=== PATIENT | male | born 1975 | race American Indian/Alaskan Native ===

== ENCOUNTER 2017-02-03 05:59 | Emergency (ER) | payer OTHER ==
--- NOTE | 2017-02-03 13:17 | EKG ---
[facility] [address] [place] [address] Signed Normal sinus rhythm Inferior infarct , age undetermined Abnormal ECG No previous ECGs available Confirmed by JUANI TAVARES MD ([id number]) on 02/03/2017 1:17:25 PM Electronically Signed By: JUANI TAVARES MD 02/03/17 1317 PATIENT NAME: QUE COTTO KASANDRA Electrocardiogram DATE OF : 77 PHYSICIAN: JUANI TAVARES MD REPORT #: [id number] REPORT IS CONFIDENTIAL AND NOT TO BE RELEASED WITHOUT AUTHORIZATION
== END 2017-02-03 10:30 | disposition home or self-care (01) ==
LOC: ED 05:59
DX: R07.89 Other chest pain (principal); F17.210 Nicotine dependence, cigarettes, uncomplicated; Z90.89 Acquired absence of other organs
CPT/HCPCS: 36415; 71010; 80053; 83874; 83880; 84484; 85025; 85379; 85610; 85730; 93005; 93010; 94640; 99283

== ENCOUNTER 2018-10-07 13:28 | Emergency (ER) | payer OTHER ==
[~2018-10-07] VITALS: Ht 180.3 cm; Wt 149.7 kg
== END 2018-10-07 15:02 | disposition home or self-care (01) ==
LOC: ED 13:28
DX: S83.92XA Sprain of unspecified site of left knee, initial encounter (principal); F17.200 Nicotine dependence, unspecified, uncomplicated; W18.30XA Fall on same level, unspecified, initial encounter
CPT/HCPCS: 73560; 99283-25

== ENCOUNTER 2021-06-22 18:00 | Inpatient (IN) | payer OTHER ==
[~2021-06-22] VITALS: Ht 177.8 cm; Wt 150.9 kg
--- NOTE | 2021-06-24 14:07 | EKG ---
[facility] [address] [place] [address] Signed Normal sinus rhythm Septal infarct , age undetermined Inferior infarct (cited on or before 03-FEB-2017) Abnormal ECG When compared with ECG of 03-FEB-2017 06:03, No significant change was found Confirmed by JUANI TAVARES MD ([id number]) on 06/24/2021 2:07:08 PM Electronically Signed By: JUANI TAVARES MD 06/24/21 1407 PATIENT NAME: QUE COTTO KASANDRA Electrocardiogram DATE OF : 77 PHYSICIAN: JUANI TAVARES MD REPORT #: [id number] REPORT IS CONFIDENTIAL AND NOT TO BE RELEASED WITHOUT AUTHORIZATION
[2021-07-12] MEDS ORDERED: AMLODIPINE BESY10 MG PO (12:26)
[2021-07-12] MEDS ORDERED: LABETALOL HCL100 MG PO (12:26)
[2021-07-12] MEDS ORDERED: LIPITOR80 MG PO (12:26)
[2021-07-12] MEDS ORDERED: ACETAMINOPHEN500 MG PO (12:27)
[2021-07-12] MEDS ORDERED: LOSARTAN POTAS100 MG PO (12:27)
[2021-07-12] MEDS ORDERED: LO-DOSE ASPIRIN81 MG PO (12:27)
[2021-07-12] MEDS ORDERED: CHLORTHALIDONE25 MG PO (12:28)
[2021-07-12] MEDS ORDERED: METFORMIN HCL500 M1 PO (12:28)
== END 2021-07-24 07:00 | DRG 65 ==
LOC: ED 18:00 → CCU 19:39 → MS 19:39
PROVIDERS: ADMIT Internal Medicine; ATTEND Internal Medicine
DX: I63.9 Cerebral infarction, unspecified (principal); G81.94 Hemiplegia, unspecified affecting left nondominant side; K92.1 Melena; Z68.42 Body mass index [BMI] 45.0-49.9, adult; Z20.822 Contact with and (suspected) exposure to COVID-19; R47.1 Dysarthria and anarthria; I10 Essential (primary) hypertension; E78.5 Hyperlipidemia, unspecified; R73.03 Prediabetes; F14.90 Cocaine use, unspecified, uncomplicated; F17.210 Nicotine dependence, cigarettes, uncomplicated; E66.01 Morbid (severe) obesity due to excess calories; R47.81 Slurred speech; R29.810 Facial weakness; Z79.899 Other long term (current) drug therapy
CPT/HCPCS: 36415; 70450; 70496; 70498; 70551; 71045; 80053; 80061; 83036; 84484; 85018; 85025; 85610; 85730; 87502; 92507; 92610; 93005; 93010; 93306; 97110; 97112; 97116; 97162; 97165; 97530; 97535; 99285-25; A9270; C9803; G0480; J1650; Q9967; U0003

== ENCOUNTER 2024-04-25 12:32 | Emergency (ER) | payer MEDICARE, OTHER ==
[~2024-04-25] VITALS: Ht 177.8 cm; Wt 165.6 kg
[~2024-04-25 12:32] MED LIST: ACETAMINOPHEN500 MG PO; AMLODIPINE BESY10 MG PO; CHLORTHALIDONE25 MG PO; LABETALOL HCL100 MG PO; LIPITOR80 MG PO; LO-DOSE ASPIRIN81 MG PO; LOSARTAN POTAS100 MG PO; METFORMIN HCL500 M1 PO
[2024-04-25] MEDS ORDERED: OXYBUTYNIN CHLO15 MG PO (12:44)
[2024-04-25] MEDS ORDERED: [UNRECOGNIZED DRUG - OTHER] (12:44)
[2024-04-25] MEDS ORDERED: ALLOPURINOL300 MG (12:45)
[2024-04-25 12:51] LABS: BASOPHILS 0.6 % (0-2); EOSINOPHILS 0.8 % (0-6); HEMATOCRIT 45.7 % (35.0-50.0); HEMOGLOBIN 15.4 g/dL (12.0-18.0); LYMPHOCYTES 13.4 % (24-44); MCH 23.9 (27-36); MCHC 33.6 g/dl (30-36); MCV 71.1 fl (81-99); MONOCYTES 3.5 % (0-12); NEUTROPHILS 81.7 % (39-80); PLATELET COUNT 275 K/uL (140-440); RBC 6.43 M/ul (4.3-5.7); RDW 17.3 (10.5-15.0)
[2024-04-25] MEDS ORDERED: ASPIRIN 81 MG CHEW PO ONE (13:00)
[2024-04-25] MEDS ORDERED: NITROGLYCERIN 0.4 MG SUBL SL PRN (13:00)
[2024-04-25 13:10] LABS: ALBUMIN 4.2 g/dL (3.4-5.0); ALBUMIN/GLOBULIN RATIO 0.76 (1.1-2.4); ANION GAP 10.1 (7-21); BILIRUBIN, TOTAL 0.5 mg/dL (0.2-1.0); BUN/CREATININE RATIO 13.17 (6.0-28.6); CALCIUM 9.7 mg/dL (8.5-10.1); CREATININE, SERUM 1.29 mg/dL (0.70-1.30); MAGNESIUM 1.8 mg/dL (1.8-2.4); POTASSIUM 4.1 mmol/L (3.5-5.1); PROTEIN, TOTAL 9.7 g/dL (6.4-8.2)
[2024-04-25 16:15] VITALS: BP 151/79
--- NOTE | 2024-04-25 21:38 | EKG ---
[facility] [address] [place] [address] Signed Sinus rhythm with 1st degree AV block Inferior infarct (cited on or before 03-FEB-2017) Abnormal ECG When compared with ECG of 22-JUN-2021 18:49, ND interval has increased Criteria for Septal infarct are no longer present Nonspecific T wave abnormality now evident in Anterior leads Confirmed by Darnell Alfaro MD () on 04/25/2024 9:38:44 PM Electronically Signed By: DARNELL ALFARO MD 04/25/24 2138 PATIENT NAME: QUE COTTO Electrocardiogram DATE OF : 77 PHYSICIAN: DARNELL ALFARO MD REPORT #: [id number] REPORT IS CONFIDENTIAL AND NOT TO BE RELEASED WITHOUT AUTHORIZATION
== END 2024-04-25 16:15 | disposition home or self-care (01) ==
LOC: ED 12:32
PROVIDERS: Emergency Medicine
DX: R07.9 Chest pain, unspecified (principal); F17.210 Nicotine dependence, cigarettes, uncomplicated; I10 Essential (primary) hypertension
CPT/HCPCS: 36415; 71045; 80053; 83735; 84484; 85025; 93005; 93010; 99285-25; A9270

== ENCOUNTER 2024-04-27 23:16 | Observation (INO) | payer MEDICARE, OTHER ==
[~2024-04-27] VITALS: Ht 180.3 cm; Wt 161.8 kg
[~2024-04-27 23:16] MED LIST changes: +ALLOPURINOL100 MG PO; +OXYBUTYNIN CHLO15 MG PO; +[UNRECOGNIZED DRUG - OTHER]
--- OUTSIDE RECORDS SUMMARY | 2024-04-27 23:21 | XMS ---
PreManage Notification: QUE COTTO Security Nailhead Puncher Events No recent Security Events currently on file CRITERIA MET - [facility] - 2 Visits in 30 Days CARE PROVIDERS -, [facility] Dentist: Residential Building Inspector Current [place] PHONE: [phone] -[place]- Dentist: Residential Building Inspector [facility] PHONE: [phone] Jt has no Care Guidelines for this patient. EJai VISIT COUNT (12 MO.) [address] [place] [address] TOTAL 2 NOTE: Visits indicate total known visits. ED/UCC VISIT TRACKING (12 MO.) 04/27/2024 23:17 [facility] TYPE: Emergency COMPLAINT: - RIGHT SIDE PAIN 04/25/2024 12:32 [facility] TYPE: Emergency COMPLAINT: - CHEST PAIN DIAGNOSES: - Chest pain, unspecified - Essential (primary) hypertension - Nicotine dependence, cigarettes, uncomplicated INPATIENT VISIT TRACKING (12 MO.) No inpatient visits to display in this time frame [email or web address]
[2024-04-27] MEDS ORDERED: CEFTRIAXONE SODIUM 2 GM in SODIUM CHLORIDE 0.9% 100 ML IV ONE (23:30)
[2024-04-27] MEDS ORDERED: MORPHINE SULFATE 4 MG/ML VIAL IV ONE (23:30)
[2024-04-27] MEDS ORDERED: CEFTRIAXONE SODIUM 2 GM VIAL ONE (23:32)
[2024-04-28] VITALS (9 sets, daily range): BP systolic 125–147; BP diastolic 78–92
[2024-04-28 00:01] LABS: LACTIC ACID, BLOOD 1.6 mmol/L (0.4-2.0)
[2024-04-28 00:05] LABS: INR 1.11 (0.80-1.30); PARTIAL THROMBOPLASTIN TIME 31.9 Sec (22.9-41.3); PROTIME 14.2 Sec (11.2-14.2)
[2024-04-28 00:07] LABS: ALBUMIN 3.2 g/dL (3.4-5.0); ALBUMIN/GLOBULIN RATIO 0.6 (1.1-2.4); ANION GAP 11.5 (7-21); BILIRUBIN, TOTAL 0.7 mg/dL (0.2-1.0); BUN/CREATININE RATIO 11.33 (6.0-28.6); CALCIUM 9.3 mg/dL (8.5-10.1); CREATININE, SERUM 1.5 mg/dL (0.70-1.30); MAGNESIUM 1.9 mg/dL (1.8-2.4); POTASSIUM 3.5 mmol/L (3.5-5.1); PROTEIN, TOTAL 8.5 g/dL (6.4-8.2)
[2024-04-28 00:27] LABS: BASOPHILS 0.1 % (0-2); EOSINOPHILS 0.3 % (0-6); HEMATOCRIT 41.8 % (35.0-50.0); HEMOGLOBIN 14.1 g/dL (12.0-18.0); MCHC 33.9 g/dl (30-36); MCV 70.8 fl (81-99); NEUTROPHILS 80.6 % (39-80); PLATELET COUNT 273 K/uL (140-440); RDW 17.4 (10.5-15.0)
[2024-04-28] MEDS ORDERED: SODIUM CHLORIDE 0.9% 500 ML IV PRN (00:30)
[2024-04-28 00:41] LABS: INFLUENZA B NAA NEGATIVE (NEGATIVE); RESPIRATORY SYNCYTIAL VIR NAA NEGATIVE (NEGATIVE)
[2024-04-28 00:51] LABS: BILIRUBIN, URINE POSITIVE (negative); BLOOD/HGB, URINE TRACE-L (Negative); KETONE, URINE NEGATIVE (Negative); LEUK ESTERASE, URINE NEGATIVE (negative); NITRITE, URINE NEGATIVE (negative)
[2024-04-28 00:57] LABS: BACTERIA, URINE 1+ /hpf (negative); EPITHELIAL CELLS, URINE SQUAMOUS 1+ /lpf (0-1+)
[2024-04-28 00:58] LABS: CASTS, URINE NONE SEEN \\lpf; COLLECTION TYPE, URINE CLEAN CATCH; CRYSTALS, URINE NONE SEEN (0-1+); RED BLOOD CELLS, URINE 0-1 /hpf (0-5); REFLEX CULTURE, URINE No (No); WHITE BLOOD CELLS, URINE 0-1 /HPF (0-5)
[2024-04-28] MEDS ORDERED: FAMOTIDINE 20 MG/ 2 ML VIAL IV SCH ×2 (02:23→09:00)
[2024-04-28] MEDS ORDERED: ondansetron HCL 4 MG/2 ML VIAL IV PRN ×2 (02:30→08:00)
[2024-04-28] MEDS ORDERED: DEXTROSE 5% - LACTATED RINGERS 1,000 ML IV SCH (02:30)
[2024-04-28] MEDS ORDERED: ACETAMINOPHEN 325 MG TAB PO PRN (02:30)
[2024-04-28] MEDS ORDERED: CEFAZOLIN SODIUM 2 GM/20 ML SYR IV SCH ×2 (02:30→11:00)
[2024-04-28] MEDS ORDERED: HYDROmorphone HCL 1 MG/ML SYR IV PRN (02:30)
--- NOTE | 2024-04-28 07:32 | NUR ---
REPORT RECEIVED FROM SYD, TRAVELER HEATHER. PT IN BED WHEN THIS RN CHECKS ON HIM. IVF RESTARTED IN R HAND. PT REMOVES HIS SHOES - STORED IN CLOSET. PT STATING THAT HIS MOUTH FEELS VERY DRY. LEMON GLYCERINE SWABS PROVIDED. NO OTHER REQUESTS, CALL LIGHT IN REACH.
[2024-04-28] MEDS ORDERED: KETOROLAC TROMETHAMINE 30 MG/ML VIAL IV PRN (08:00)
[2024-04-28] MEDS ORDERED: MORPHINE SULFATE 10 MG/ML VIAL IV PRN (08:00)
[2024-04-28] MEDS ORDERED: LACTATED RINGER'S 1,000 ML IV ONE (08:00)
[2024-04-28] MEDS ORDERED: LACTATED RINGER'S 1,000 ML IV SCH (08:00)
[2024-04-28 08:18] LABS: BASOPHILS 0.4 % (0-2); HEMATOCRIT 38.2 % (35.0-50.0); HEMOGLOBIN 12.9 g/dL (12.0-18.0); LYMPHOCYTES 6.2 % (24-44); MCH 23.7 (27-36); MCHC 33.7 g/dl (30-36); MCV 70.3 fl (81-99); MONOCYTES 4.3 % (0-12); NEUTROPHILS 89.1 % (39-80); PLATELET COUNT 222 K/uL (140-440); RBC 5.44 M/ul (4.3-5.7); RDW 17.1 (10.5-15.0)
[2024-04-28 08:38] LABS: ALBUMIN 2.6 g/dL (3.4-5.0); ALBUMIN/GLOBULIN RATIO 0.52 (1.1-2.4); ANION GAP 13.7 (7-21); BILIRUBIN, TOTAL 0.8 mg/dL (0.2-1.0); BUN/CREATININE RATIO 12.08 (6.0-28.6); CALCIUM 8.7 mg/dL (8.5-10.1); CREATININE, SERUM 1.49 mg/dL (0.70-1.30); POTASSIUM 3.7 mmol/L (3.5-5.1); PROTEIN, TOTAL 7.6 g/dL (6.4-8.2)
--- NOTE | 2024-04-28 08:43 | NUR ---
LAB IN ROOM. CALL LIGHT AND PERSONAL ITEMS WITHIN REACH.
--- NOTE | 2024-04-28 08:54 | NUR ---
MEDICATION ADMINISTERED, SEE MAR. PT RESTING IN BED ON HIS PHONE AND WATCHING TELEVISION. LR BOLUS STARTED IN R HAND. IV IN R AC PAINFUL TO FLUSH AND LEAKING. IV REMOVED, SITE WRAPPED IN GAUZE AND COBAN, PT EDUCATED ON REMOVAL AND VERBALIZES UNDERSTANDING. NO REQUESTS AT THIS TIME, CALL LIGHT IN REACH.
[2024-04-28] MEDS ORDERED: OMEPRAZOLE20 MG PO (09:36)
[2024-04-28] MEDS ORDERED: INDOMETHACIN25 MG PO (09:37)
[2024-04-28] MEDS ORDERED: VITAMIN D325 MCG PO (09:37)
[2024-04-28] MEDS ORDERED: COREG6.25 MG PO (09:38)
[2024-04-28] MEDS ORDERED: ASPIRIN81 MG PO (09:38)
[2024-04-28] MEDS ORDERED: NORVASC5 MG PO (10:20)
--- NOTE | 2024-04-28 10:21 | NUR ---
MED REC COMPLETE
--- NOTE | 2024-04-28 10:47 | NUR ---
ASSESSMENT AND ADMISSION COMPLETE. PT HAS PERSONAL FOUR PRONG CANE AT BEDSIDE AND DEMONSTRATES A STEADY GAIT IN THE ROOM. PT CLEARED TO BE INDEPENDENT IN ROOM TO ALLOW FOR MOVEMENT. PT HAS HX OF CVA IN 2021 AND HAS L SIDED HEMIPLEGIA WHICH HE NAVIGATES WELL. PT REPORTS IMPROVED PAIN CONTROL AT THE MOMENT, NO NAUSEA. TENDER TO PALPATION IN UPPER ABD. UMBILICAL HERNIA NOTED, PT DENIES PAIN AT THIS SITE. BOWEL TONES ARE ACTIVE IN ALL FOUR QUADRANTS. PT HAS BEEN DIAPHORETIC BUT AFREBILE THIS AM, HE IS REQUESTING A SHOWER. LR BOLUS FINISHES AND REMOVED. PT HAS SCABBING TO BILAT SHINS, REPORT HE HAS HAD ITCHING FOR THE PAST FEW WEEKS. PT ALSO REPORTS OVERACTIVE BLADDER WITH OCCASIONAL DRIBBLING, HE HAS RECENTLY STARTED A MEDICATION FOR THIS. PT HAS NO REQUESTS AT THIS TIME, CALL LIGHT IN REACH.
--- NOTE | 2024-04-28 11:20 | NUR ---
ALERT AND ORIENTED, SITTING ON EDGE OF BED. PATIENT LIVES IN HOUSE WITH BROTHER AND FATHER. HE HAS A CAN AND WHEELCHAIR. HIS WHEELCHAIR HE ONLY USES IF HE IS GOING TO BE OUT OF HOUSE FOR EXTENDED PERIODS OF TIME. HE DOES NOT DRIVE. HIS FATHER PROVIDES TRANSPORT. PATIENT DENIES DIFFICULTY WITH PAYING UTILITIES, FOOD OR MEDICATIONS. STATES HE AND HIS FAMILY MEMBERS SPLIT COSTS. NO KNOWN CM NEEDS AT THIS TIME. PLAN TO DC TO HOME WITH FAMILY WHEN MEDICALLY CLEARED.
--- NOTE | 2024-04-28 11:51 | NUR ---
UR CLINICAL REVIEW: 2 MN FOR VERSALUS-PER TRANSITION NURSE MEETS OB/INPT FOR CHOLECYSTITIS WITH NEED FOR PAIN CONTROL MEDICARE OBS ORDERED GIVEN BY ATTENDING MD AFTER EVALUATION NO AUTH REQUIRED PER MEDICARE GUIDELINES DISCHARGE TO HOME WHEN STABLE
--- NOTE | 2024-04-28 13:21 | NUR ---
BED BATH WIPES PROVIDED PER PT REQUEST. CARMINE KEATING IN ROOM AT THIS TIME.
[2024-04-28] MEDS ORDERED: CEFAZOLIN SODIUM 3 GM/30 ML SYR IV SCH (14:00)
--- NOTE | 2024-04-28 14:36 | NUR ---
MEDICATION ADMINISTERED, SEE APR. HOT PACKS PROVIDED X2 FOR UPPER ABDOMINAL PAIN 03/28. PT HAS FINISHED ADMINISTERED BED BATH TO HIMSELF INDEPENDENTLY, ONLY NEEDS ASSISTANCE IN BUTTONING NEW GOWN. BACK IN BED AND STATES HE IS GOING TO ATTEMPT TO NAP. NO OTHER REQUESTS, CALL LIGHT IN REACH.
--- NOTE | 2024-04-28 15:38 | EKG ---
[facility] [address] [place] [address] Signed Sinus tachycardia Inferior infarct (cited on or before 03-FEB-2017) Anterolateral infarct , age undetermined Abnormal ECG When compared with ECG of 25-APR-2024 12:33, [place] interval has decreased Questionable change in QRS duration Anterior infarct is now present Anterolateral infarct is now present Confirmed by Darnell Alfaro MD () on 04/28/2024 3:38:28 PM Electronically Signed By: DARNELL ALFARO MD 04/28/24 1538 PATIENT NAME: QUE COTTO Electrocardiogram DATE OF : 77 PHYSICIAN: DARNELL ALFARO MD REPORT #: [id number] REPORT IS CONFIDENTIAL AND NOT TO BE RELEASED WITHOUT AUTHORIZATION
--- NOTE | 2024-04-28 15:45 | NUR ---
CARMINE KEATING IN ROOM TO PROVIDE PRE-SURGICAL WIPEDOWN AT THIS TIME.
--- NOTE | 2024-04-28 16:19 | NUR ---
PT UPDATED ON PLAN OF CARE PROVIDED TO THIS RN BY DR SINGH. PT VERBALIZES UNDERSTANDING, GRABS CELL PHONE TO UPDATE HIS FAMILY. PT BOWEL TONES ACTIVE IN ALL FOUR QUADRANTS, TENDER TO PALPATION. PT REPORTS HIS PAIN IS WELL CONTROLLED, ONLY A 2/10. IV TO R HAND FLUSHES WNL AND INFUSING IVF WNL. PT RESTING IN BED AT THIS TIME, SCDs IN PLACE, WATCHING TELEVISION AND ON HIS PHONE. URINAL EMPTIED OF 75ML OF CLEAR, ANAHY URINE. PT HAS NO REQUESTS AT THIS TIME, CALL LIGHT IN REACH.
--- NOTE | 2024-04-28 18:23 | NUR ---
PT REPORTS HIS PAIN IS CURRENTLY A 2-3/10, SAYS HE WILL BE REQUESTING PAIN MEDICATION SOON. RESTING IN BED ON HIS L SIDE WITH SEVERAL PILLOWS FOR COMFORT, NO OTHER REQUESTS, CALL LIGHT IN REACH.
--- NOTE | 2024-04-28 18:36 | NUR ---
PRN PAIN MEDICATION ADMINISTERED, SEE MAR. SCDs IN PLACE, PT REPORTS HE'S GOING TO TRY AND GET SOME SLEEP. NO OTHER REQUESTS, CALL LIGHT IN REACH.
--- NOTE | 2024-04-28 20:09 | NUR ---
Received report. Pt alert, resting in bed. No needs ID'd at this time, but states he would like to sleep if possible.
--- NOTE | 2024-04-28 20:54 | NUR ---
DR SINGH CALLED AND UPDATED THIS RN THAT pt's SURGERY WILL BE TOMORROW-NOT TONIGHT.pt UPDATED, NO NEEDS OR CONCERNS VERBALIZED AND PRIMARY RN UPDATED AND AWARE. CALL LIGHT IN REACH.
[2024-04-28] MEDS ORDERED: AMLODIPINE BESYLATE 10 MG TAB PO SCH (21:00)
--- NOTE | 2024-04-28 21:24 | NUR ---
Performed assessment, vitals. Given nighttime meds. Notified that surgery is currently scheduled for noon tomorrow. Call light in reach
--- NOTE | 2024-04-28 22:40 | NUR ---
Replaced IV LR bag, given morphine for 5/10 pain and IV abx. Call light in reach
[2024-04-29] VITALS (11 sets, daily range): BP systolic 116–1563; BP diastolic 66–94
--- NOTE | 2024-04-29 00:36 | NUR ---
Pt sleeping with observed rise and fall of chest. Call light in reach on bedside table.
--- NOTE | 2024-04-29 01:47 | NUR ---
DIRECTOR BIOINFORMATICS OBTAINED VITALS AND I&O. PT STATES NO NEEDS AT THIS TIME. CALL LIGHT WITHIN REACH.
--- NOTE | 2024-04-29 02:55 | NUR ---
Pt sleeping with audible breaths. Call light in reach on bedside table
--- NOTE | 2024-04-29 04:50 | NUR ---
PT SLEEPING WITH VISIBLE RISE AND FALL OF CHEST NOTED. CALL LIGHT IN REACH
--- NOTE | 2024-04-29 05:10 | NUR ---
Pt awaiting cholecystectomy. A&Ox4. Mild-moderate epigastric pain, well controlled with PRN medications. R sided weakness at baseline, moves independently with 4 prong ccane. Receiving IV abx overnight. Plan for lap to possible for open shanell today. Call light in reach
[2024-04-29 06:13] LABS: BASOPHILS 0.4 % (0-2); EOSINOPHILS 0.7 % (0-6); HEMATOCRIT 35.8 % (35.0-50.0); HEMOGLOBIN 11.8 g/dL (12.0-18.0); LYMPHOCYTES 14.7 % (24-44); MCH 23.6 (27-36); MCHC 32.9 g/dl (30-36); MCV 71.6 fl (81-99); MONOCYTES 5.5 % (0-12); NEUTROPHILS 78.7 % (39-80); PLATELET COUNT 222 K/uL (140-440); RBC 5.01 M/ul (4.3-5.7); RDW 17.3 (10.5-15.0)
--- NOTE | 2024-04-29 06:15 | NUR ---
VITALS AND IV ABX. CALL LIGHT IN REACH
[2024-04-29 06:33] LABS: ALBUMIN 2.3 g/dL (3.4-5.0); ALBUMIN/GLOBULIN RATIO 0.48 (1.1-2.4); ANION GAP 11.3 (7-21); BILIRUBIN, TOTAL 0.5 mg/dL (0.2-1.0); BUN/CREATININE RATIO 16.05 (6.0-28.6); CALCIUM 8.6 mg/dL (8.5-10.1); CREATININE, SERUM 1.37 mg/dL (0.70-1.30); MAGNESIUM 1.9 mg/dL (1.8-2.4); POTASSIUM 3.3 mmol/L (3.5-5.1); PROTEIN, TOTAL 7.1 g/dL (6.4-8.2)
--- NOTE | 2024-04-29 07:11 | NUR ---
REPORT RECEIVED FROM HEATHER STUBBS. PT RESTING IN BED WATCHING TELEVISION, SCDs IN PLACE. NO REQUESTS, CALL LIGHT IN REACH.
[2024-04-29] MEDS ORDERED: PROCHLORPERAZINE EDISYLATE 10 MG/2 ML VIAL IV PRN ×2 (08:45→18:45)
[2024-04-29] MEDS ORDERED: NALOXONE HCL 0.4 MG SYR IV PRN ×2 (08:45→18:45)
[2024-04-29] MEDS ORDERED: fentaNYL citrate 50 MCG/ML SDV IV PRN ×2 (08:45→18:45)
[2024-04-29] MEDS ORDERED: METOCLOPRAMIDE HCL 10 MG/2 ML SDV IV PRN ×2 (08:45→18:45)
[2024-04-29] MEDS ORDERED: ondansetron HCL 4 MG/2 ML VIAL IV PRN ×2 (08:45→18:45)
[2024-04-29] MEDS ORDERED: droPERidol 5 MG/2 ML VIAL IV PRN ×2 (08:45→18:45)
[2024-04-29] MEDS ORDERED: IBLOOD GLUCOSE TEST STRIP 1 EA TEST VI PRN ×2 (08:45→18:45)
[2024-04-29] MEDS ORDERED: MORPHINE SULFATE 10 MG/ML VIAL IV PRN ×2 (08:45→18:45)
--- NOTE | 2024-04-29 09:01 | NUR ---
PT SUPPLIED WITH SURGICAL WIPE DOWN WIPES, INSTRUCTED TO CALL WHEN HE FINISHES THE AREAS HE CAN REACH AND NEEDS ASSISTANCE, VERBALIZES UNDERSTANDING.
--- NOTE | 2024-04-29 09:38 | NUR ---
PATIENT IN BED AT THIS TIME. WAREHOUSE OPERATOR ASSISTED PATIENT WITH CHG WIPEDOWN, CHANGED PATIENTS LINENS AND MOVED PATIENT TO CHAIR. CALL LIGHT WITHIN REACH, NO FURTHER NEEDS AT THIS TIME.
--- NOTE | 2024-04-29 09:58 | NUR ---
PATIENT SITTING IN CHAIR. PATIENT STATES HE IS PAINFUL BUT IT IS TOLERABLE FOR NOW. PATIENT HAS BROTHER AGUILA TO PICK HIM UP AT TIME OF DISCHARGE. NO OTHER CM NEEDS AT THIS TIME.
--- NOTE | 2024-04-29 10:37 | NUR ---
ASSESSMENT COMPLETE. PT IS UP IN RECLINER WATCHING SOMETHING ON HIS CELLPHONE. IV TO R HAND FLUSHES WNL, IVF INFUSING WNL. PT BOWEL TONES ARE ACTIVE IN ALL FOUR QUADRANTS WITH TENDERNESS TO PALPATION IN BILAT UPPER QUADRANTS. PT REPORTS NO NAUSEA AND PAIN IS A 2/10 AND MANAGEABLE. PT HEART SOUNDS ARE WNL. LUNGS CLEAR IN ALL LOBES, PT REPORTING OCC. NON-PRODUCTIVE COUGH WITH NO SHORTNESS OF BREATH. PT EDUCATED ON INCENTIVE SPIROMETER USE, DEMONSTRATES USE X10. PT IS REPORTING THAT HE'S HUNGRY. HE IS CONVERSING PLEASANTLY, ALERT AND ORIENTED. L SIDED HEMIPLEGIA FROM PREVIOUS CVA UNCHANGED FROM ADMISSION AND HE IS NEUROLOGICALLY AT BASELINE. PT HAS BEEN MOVING IN ROOM INDEPENDENTLY. PT PREVIOUSLY HAD SURGICAL WIPE DOWN COMPLETED. FRESH GOWN ON. NEW LINENS TO BED. PT HAS NO REQUESTS, CALL LIGHT AND PERSONAL BELONGINGS IN REACH.
--- NOTE | 2024-04-29 11:24 | NUR ---
PATIENT IS CURRENTLY SITTING UP IN THEIR CHAHIR. URINAL WAS EMPTIED AND RINSED.
[2024-04-29] MEDS ORDERED: propofoL 200 MG/20 ML VIAL ONE (11:34)
[2024-04-29] MEDS ORDERED: SUGAMMADEX SODIUM 200 MG/2 ML ML ONE (11:34)
[2024-04-29] MEDS ORDERED: DEXAMETHASONE SOD PHOS 4 MG/ML VIAL ONE ×2 (11:34→17:06)
[2024-04-29] MEDS ORDERED: METOCLOPRAMIDE HCL 10 MG/2 ML SDV ONE (11:34)
[2024-04-29] MEDS ORDERED: LIDOCAINE HCL 4% 5 ML AMP ONE (11:34)
[2024-04-29] MEDS ORDERED: ondansetron HCL 4 MG/2 ML VIAL ONE ×2 (11:34→17:10)
[2024-04-29] MEDS ORDERED: FAMOTIDINE 20 MG/ 2 ML VIAL ONE (11:34)
[2024-04-29] MEDS ORDERED: KETOROLAC TROMETHAMINE 30 MG/ML VIAL ONE (11:34)
[2024-04-29] MEDS ORDERED: fentaNYL citrate 100 MCG/2 ML VIAL ONE (11:34)
[2024-04-29] MEDS ORDERED: LACTATED RINGER'S 1,000 ML IV ONE ×2 (11:34→19:23)
[2024-04-29] MEDS ORDERED: MIDAZOLAM HCL 2 MG/2 ML VIAL ONE (11:34)
[2024-04-29] MEDS ORDERED: SUCCINYLCHOLINE IN 0.9% NACL 200 MG/10 ML SYRINGE ONE (11:34)
[2024-04-29] MEDS ORDERED: ROCURONIUM BROMIDE 50 MG/5 ML SYR ONE ×2 (11:34→17:29)
--- NOTE | 2024-04-29 13:33 | NUR ---
PT IN RECLINER WITH BLE ELEVATED. UPDATED PT ON SURGICAL TIME. PT VERBALIZES UNDERSTANDING. NO REQUETS, CALL LIGHT IN REACH.
[2024-04-29] MEDS ORDERED: iopamidoL 30 ML VIAL ONE (13:44)
[2024-04-29] MEDS ORDERED: SODIUM CHLORIDE 0.9% 40 ML IV ONE ×2 (13:44→16:57)
[2024-04-29] MEDS ORDERED: SEVOFLURANE 250 ML BTL INH ONE (13:48)
--- NOTE | 2024-04-29 14:37 | NUR ---
PATIENT WAS IN THE CHAIR AT THIS TIME, SPORTS EQUIPMENT RACKER CHARTED VITALS AND OUTPUT. ASSISTED TO THE RESTROOM FIXED AND PUT ON SCDS. CALL LIGHT WITH IN REACH AND NOTHING ELSE NEEDED AT THIS TIME.
--- NOTE | 2024-04-29 16:21 | NUR ---
04/29/24 1621 Carole Aponte 1606-PT ARRIVES TO PACU VIA STRETCHER, RESTING SEMI FOWLERS, PT NOT RESPONSIVE TO NOXIOUS STIMULI,OPA IN PLACE, VSS ON 10L VIA MASK, RR EVEN AND UNLABORED. 1615-PT TITRATED TO 6L VIA MASK, VS REMAIN STABLE.
--- NOTE | 2024-04-29 16:41 | NUR ---
SURGERY ARRIVES TO TAKE PT OFF THE FLOOR AT THIS TIME.
--- NOTE | 2024-04-29 17:30 | NUR ---
PT REMAINS OFF THE FLOOR AT THIS TIME.
[2024-04-29] MEDS ORDERED: dexmedeTOMIDine HCl 200 MCG/2 ML VIAL ONE (17:55)
--- NOTE | 2024-04-29 18:54 | NUR ---
PT REMAINS OFF THE FLOOR.
[2024-04-29] MEDS ORDERED: ACETAMINOPHEN 1,000 MG/100 ML VIAL ONE (18:59)
--- NOTE | 2024-04-29 21:02 | NUR ---
Post-op vitals. Pt reports pain at 5/10 and downtrending. Requests jello if available, denies nausea. Given jello and pudding. Voided to urnial with assistance. Call light in reach
--- NOTE | 2024-04-29 21:14 | NUR ---
Pt arrived on floor following open cholecystectomy. 2 nurse skin check performed, noted covered surgical site on R abdomen with small amount of red drainage. ELIER drain with minimal output. L pannus with painful redness and boils. Post-op vitals initiated. Updated pt family. Call light in reach.
--- NOTE | 2024-04-29 21:17 | NUR ---
ABEL IS IN BED W/HOB ELEVATED ON A 2L NC. HE DOES NOT WEAR HOME OXYGEN, NOR DOES HE USE A CPAP OR BIPAP. ADDITIONALLY, HE DOES NOT USE ANY INHALED RESPIRATORY MEDICATIONS AT HOME. Abel STATED THAT HE QUIT SMOKING ABOUT 2 WEEKS AGO.
--- NOTE | 2024-04-29 22:12 | NUR ---
Post-op vitals. Given refill of water. Call light in reach
--- NOTE | 2024-04-29 22:57 | NUR ---
DR SINGH CALLED RN STATION AND GAVE TELEPHONE ORDER READ BACK FOR HEPARIN 5,000 UNITS SUB-Q EVERY 12HRS- TO START TONIGHT. ORDER PLACED AND PRIMARY RN MADE AWARE.
[2024-04-29] MEDS ORDERED: HEParin SOD (PORCINE) 5,000 UNIT/ML SDV SUB-Q SCH (23:15)
--- NOTE | 2024-04-29 23:40 | NUR ---
POST-OP VITALS, GIVEN EVENING MEDS AND IV MORPHINE 2MG FOR PAIN. PT REPORTS PAIN 4/10, BUT CLIMBING. REASSESSED ABDOMEN, NO FURTHER STRIKETHROUGH ON DRESSING PAST AREA MARKED. CALL LIGHT IN REACH
[2024-04-30] VITALS (10 sets, daily range): BP systolic 131–157; BP diastolic 70–109
--- NOTE | 2024-04-30 01:14 | NUR ---
PT SLEEPING, SPO2 96%, OBSERVED RISE AND FALL OF CHEST. CALL LIGHT IN REACH
--- NOTE | 2024-04-30 03:19 | NUR ---
PT SLEEPING WITH OBSERVED RISE AND FALL OF CHEST. CALL LIGHT IN REACH
--- NOTE | 2024-04-30 05:48 | NUR ---
VITALS, ASSISTED TO EDGE OF BED TO USE URINAL. GAVE IV TORADOL FOR 5/10 PAIN. IV ANTIBIOTICS. PT SIGNED CONSENT FOR PHOTO, TOOK PICTURE OF BLISTERS ON L PANNUS. PT IN BED, ON PHONE WITH FAMILY. CALL LIGHT IN REACH
--- NOTE | 2024-04-30 05:59 | NUR ---
PT REQUEST BREAK FROM SCDS. OFF CURRENTLY, HAD BEEN AT NIGHT. CALL LIGHT IN REACH
--- NOTE | 2024-04-30 07:39 | NUR ---
PT RESTING IN BED AT THIS TIME, IV FLUIDS INFUSING ORDERED. PT STATES PAIN IS BETTER THIS MORNING ABOUT 3-4/10. DRESSING TO UPPER ABDOMEN HAS SOME BLOOD PRESENT, ELIER IN PLACE PUTTING OUT SANGUINEOUS FLUID. PT WOULD LIKE TO CONTINUE TO REST AT THIS TIME. ALL PT CARE NEEDS MET, CALL LIGHT WITHIN REACH.
--- NOTE | 2024-04-30 08:40 | NUR ---
PATIENT IN CHAIR AT THIS TIME. THIS FOREMAN/PILE DRIVING AND ERECTION ASSISTED PATIENT TO CHAIR FROM BED. CALL LIGHT WITHIN REACH, NO FURTHER NEEDS AT THIS TIME.
--- NOTE | 2024-04-30 08:50 | NUR ---
Board has been updated and call light has been placed within reach. Patient goal is ambulation today
[2024-04-30] MEDS ORDERED: FAMOTIDINE 20 MG TAB PO SCH (09:00)
--- NOTE | 2024-04-30 09:00 | NUR ---
PT SITTING UP IN CHAIR HAVING BREAKFAST AT THIS TIME, STATES IT WAS UNCOMFORTABLE GETTING OUT OF BED THIS MORNING BUT NOW THAT UP IN THE CHAIR STATES FEELING BETTER. DRESSING REMAINS BLOODY, NO NEW BLEEDING AFTER GETTING UP REPORT. ELIER IN PLACE, WITH BLOODY OUTPUT. PT DENIES NAUSEA, HAD A GOOD APPETITE FOR MEALS BUT DID NOT WANT TO OVEREAT. COMPLETED ABOUT 90% OF BREAKFAST. IV FLUIDS INFUSING. DENIES NEED FOR PAIN MEDS, PAIN 4/10 AT THIS TIME. TV REMOTE PROVIDED TO PATIENT, CALL LIGHT WITHIN REACH. ALL PT CARE NEEDS MET, JUST WAITING TO SEE MD. PT DOES INQUIRE ABOUT POTENTIALLY GOING HOME, CONCERN WITH LOSS OF FUNCTION TO (L) HAND, HE WONT BE ABLE TO MANAGE DRAIN IF LEFT IN PLACE. INFORMED WILL REVIEW WITH MD WHEN HE ARRIVES TO ASSESS.
[2024-04-30] MEDS ORDERED: IBUPROFEN 600 MG TAB PO PRN (11:45)
[2024-04-30] MEDS ORDERED: OXYCODONE HCL 5 MG TAB PO PRN (11:45)
[2024-04-30] MEDS ORDERED: ACETAMINOPHEN 500 MG TAB PO PRN (11:45)
[2024-04-30 12:17] LABS: BASOPHILS 0.1 % (0-2); HEMATOCRIT 36.7 % (35.0-50.0); LYMPHOCYTES 8.5 % (24-44); MCH 23.5 (27-36); MCHC 32.7 g/dl (30-36); MCV 71.8 fl (81-99); NEUTROPHILS 87.4 % (39-80); PLATELET COUNT 294 K/uL (140-440); RBC 5.11 M/ul (4.3-5.7); RDW 17.4 (10.5-15.0)
[2024-04-30 12:31] LABS: ALBUMIN 2.4 g/dL (3.4-5.0); ALBUMIN/GLOBULIN RATIO 0.46 (1.1-2.4); ANION GAP 7.8 (7-21); BILIRUBIN, TOTAL 0.3 mg/dL (0.2-1.0); BUN/CREATININE RATIO 18.69 (6.0-28.6); CALCIUM 8.9 mg/dL (8.5-10.1); CREATININE, SERUM 1.23 mg/dL (0.70-1.30); POTASSIUM 3.8 mmol/L (3.5-5.1); PROTEIN, TOTAL 7.6 g/dL (6.4-8.2)
--- NOTE | 2024-04-30 12:39 | NUR ---
PATIENT IN CHAIR AT THIS TIME. ACTUARY WENT INTO PATIENTS ROOM FOR HOURLY ROUNDS. CALL LIGHT WITHIN REACH, NO FURTHER NEEDS AT THIS TIME.
--- NOTE | 2024-04-30 12:41 | NUR ---
PT SITTING UP IN CHAIR AT THIS TIME, FAMILY PRESENT IN THE ROOM VISITING. PT IV FLUIDS RESTARTED, ANOTHER RN PAUSED FLUIDS FOR BLOOD DRAW. PT DENIES NEED AT THIS TIME FOR PAIN MEDICATIONS, OFFERED BUT PT DENIED NEED. PT WILL CALL, WOULD LIKE TO GET BACK TO BED IN A LITTLE BIT AND WILL NEED SOME ASSISTANCE, INFORMED HE WILL CALL WHEN READY. ALL PT CARE NEEDS MET AT THIS TIME, DENIES ANY OTHER NEEDS. CALL LIGHT WITHIN REACH.
--- NOTE | 2024-04-30 13:24 | NUR ---
PATIENT IN CHAIR AT THIS TIME. MEAL ATTENDANT CHARTED VITALS AND I&O'S. CALL LIGHT WITHIN REACH, NO FURTHER NEEDS AT THIS TIME.
--- NOTE | 2024-04-30 15:22 | NUR ---
PT SITTING UP IN CHAIR, PRN MOTRIN GIVEN FOR DISCOMFORT. URINATING IN URINAL. BT+, DENIES NAUSEA, GOOD APPETITE, PT REPORTS +FLATUS AND THE NEED TO POTENTIALLY HAVE BM THIS AFTERNOON. ALL PT CARE NEEDS MET AT THIS TIME.
--- NOTE | 2024-04-30 18:19 | NUR ---
Patient sitting up in chair watching tv, no acute distress. Patient reports tolerable abdominal pain. Abdominal dressing to upper abd has serosang drainage, unchanged per report. ELIER drain to right lower abd intact, closed to suction, scant amount of serosang drainage noted. Patient denies nausea. IV fluids infusing per order. No needs at this time.
--- NOTE | 2024-04-30 18:48 | NUR ---
PATIENT IS IN HIS CHAIR AT THIS TIME. AEROSPACE CONTROL AND WARNING SYSTEMS CHARTED VITALS AND I&O'S, CALL LIGHT WITH IN REACH AND NOTHING ELSE NEEDED AT THIS TIME.
--- NOTE | 2024-04-30 19:14 | NUR ---
Received report. Pt on phone with family in recliner. Replaced IV fluids. Call light in reach, no needs currently
--- NOTE | 2024-04-30 19:36 | NUR ---
pt up in chair, legs dependent. on room air. alert and oriented. c/o 10/10 abd pain. abd large soft, distendend, isaac, passing gas, no bm. roberto w ss drainage. lower dressing intact. upper transverse dressing with old drainage. Generalized edema present, scratches LLe, L sided deficit, l hand contacture and edema, uses cane. IVF infuisng RA. tolerating liquids well, 1PA. lungs clear
--- NOTE | 2024-04-30 20:53 | NUR ---
QUE IS AWAKE SITTING IN THE CHAIR ON ROOM AIR.
[2024-04-30] MEDS ORDERED: MICONAZOLE NITRATE 1 EA BTL TOP SCH (21:00)
--- NOTE | 2024-04-30 23:14 | NUR ---
RESATING, EYES CLOSED, ON ROOM AIR, NO C/O PAIN. IVF INFUSING W/O PROBLEMS. SCDS IN PLACE, HOB AND FEET ELEVATED.
--- NOTE | 2024-05-01 02:47 | NUR ---
Resting, eyes closed, no s/sx distress, abd dressing no changes, cooperative with assessmnet. post op cpox on at bedside. IVf infusing w/o problems. uses urinal, tolerating sips of fluids
[2024-05-01 05:27] VITALS: BP 136/79
[2024-05-01 05:29] VITALS: BP 136/79
--- NOTE | 2024-05-01 05:38 | NUR ---
Awakens easily, on room air, post op CPOX on at bedside. Denies c/o pain. IVF infusing w/o problems. abd large tender, dressing with old drainage in place. roberto with scant serous drainage. scds in place, turns and repositions self. L sided residual weakness and edema to L hand and Le no changes.
--- NOTE | 2024-05-01 07:47 | OR ---
[facility] [address], [place] [address] Signed DATE OF OPERATION: 04/29/2024 SURGEON: Ken Singh MD PREOPERATIVE DIAGNOSES: 1. Acute calculous cholecystitis. 2. Morbid obesity (weight 356 pounds). POSTOPERATIVE DIAGNOSES: 1. Severe gangrenous cholecystitis with perforation of gallbladder and extrusion of stone. 2. Incarcerated non-strangulated supraumbilical hernia. PROCEDURE: 1. Laparoscopy with prompt conversion to open cholecystectomy with intraoperative cholangiogram; prolonged, complicated, and difficult. 2. Surgeon-directed fluoroscopy. ANESTHESIA: General endotracheal; Ken Ocasio CRNA. DRAINS: 7 mm Darnell. INDICATIONS: This morbidly obese, BMI 49.7, 356-pound white man presented to the emergency room on Thursday of this week with complaints of upper abdominal pain. Evaluation concluded he had "heartburn". He was discharged to the hospital. He returned late in the night on March 31, with severe worsening upper abdominal pain. A CT scan was performed, which showed a 2.6 cm right-sided adrenal nodule, but acute calculous cholecystitis, a single large gallstone was apparently wedged in the infundibulum of the gallbladder. He has been fluid resuscitated, given intravenous antibiotics, and now to undergo cholecystectomy. He understands the risk of bleeding, infection, bile duct injury, need for open procedure, and other unforeseen complications. Understanding this, he wished to proceed. FINDINGS: Entry to the abdomen was challenging on the basis of his significant abdominal obesity, but was accomplished safely. Intra-abdominal inspection showed no sign of ascites or carcinomatosis, but did show mucopurulence and bile in the subhepatic space and marked Electronically Signed By: KEN SINGH MD 05/01/24 0747 PATIENT NAME: QUE COTTO OPERATIVE REPORT DATE OF : 77 REPORT #: [id number] PHYSICIAN: KEN SINGH MD PCP: VIRGIL NORIEGA MD REPORT IS CONFIDENTIAL AND NOT TO BE RELEASED WITHOUT AUTHORIZATION [facility] [address], [place] [address] Signed inflammation of the gallbladder itself. Prompt conversion to open operation was undertaken showing a gangrenous cholecystitis in the infundibulum with perforation of the gallbladder and extrusion of stone. Complete cholecystectomy was performed, which was quite prolonged, complicated, and difficult. Intraoperative cholangiogram showed a relatively generous cystic duct in its length, normal anatomy, otherwise, and no sign of filling defect or other abnormality. The operation was definitely prolonged, complicated, and difficult. DESCRIPTION OF PROCEDURE: The patient was brought to the operating room, given a general endotracheal anesthetic. Ancef was given intravenously in the operating room. Sequential compression device stockings were in place. After satisfactory general endotracheal anesthesia, the abdomen was prepared with a chlorhexidine solution and draped sterilely. Notable was a nonreducible, but non-strangulated hernia in the region of the umbilicus. The patient has a very long torso, and on that basis, a midline incision was made cephalad to the umbilical area, well out of the area of the umbilical hernia and its incarceration. Using an open Scooter cannula technique, the midline fascia was encountered and incised and ultimately the peritoneal cavity entered. Digital examination internally showed intraabdominal organs in the region of the umbilical hernia and omentum cephalad to the defect itself that was created. An extra long Scooter cannula with a balloon was inserted and pneumoperitoneum achieved to a level of 14 mmHg of carbon dioxide gas. Intra-abdominal inspection showed plethoric abdomen including very fatty omentum and omental adhesions in the region of entry to the abdomen. The liver had fatty infiltration as well. A 12 mm epigastric port was placed under direct visualization. Single hand manipulation of the upper abdominal contents in a reverse Trendelenburg position revealed a mucopurulent exudate beneath the liver edge and when more fully exposed copious amounts of purulence and bilious fluid. The gallbladder itself was visualized and intensely inflamed and deep red in appearance. It was deemed advisable simply to open up and provide open cholecystectomy as the endoscopic findings were extremely forbidding. The trocars were removed and all due care was made to reapproximate fascia in the depths of the trocar site wound. The fascia appeared to be closed. I would not allow entry of the finger in any way. An incision was made in the subcostal area, extending the epigastric port site to a subcostal incision. Dissection was carried through the thick abdominal pannus. The anterior rectus sheath divided as was the rectus abdominis muscle with electrocautery. The posterior rectus sheath and the and the peritoneum were incised and the abdomen was entered. Bilious fluid in the subhepatic space was noted from previous evaluation. A Bookwalter retractor affixed to the table to provide good exposure. Quite notable was the depth of the gallbladder lay in relation to the abdominal contents and a moderately Electronically Signed By: KEN SINGH MD 05/01/24 0747 PATIENT NAME: QUE COTTO OPERATIVE REPORT DATE OF : 77 REPORT #: [id number] PHYSICIAN: KEN SINGH MD PCP: VIRGIL NORIEGA MD REPORT IS CONFIDENTIAL AND NOT TO BE RELEASED WITHOUT AUTHORIZATION [facility] [address], [place] [address] Signed thick and mucopurulent discharge noted as well. With all due care, good exposure was provided to the gallbladder, which was found to have a hole in the infundibulum and associated necrosis. A ring clamp was applied to the gallbladder, and with meticulous care, the peritoneum overlying it was dissected free, and using blunt electrocautery dissection, various maneuvers, the gallbladder was freed from the hepatic fossa. Meticulous dissection was undertaken and clips used as necessary to secure neovascularization associated with the inflammatory process of the gallbladder. Ultimately, the infundibulum was well defined and dissection carried to what appeared to be viable duct tissue. The duct was slightly enlarged, but no doubt was the cystic duct itself. The right angle clamp was applied to the distal portion of the gallbladder and a transverse "choledochotomy made in the cystic duct. Using an infusion catheter, it was inserted into the cystic duct and Bookwalter retractor implements were removed. Intraoperative cholangiography was undertaken showing free flow of contrast in the biliary tree with prompt emptying into the duodenum. There was no sign of filling defect or other problem. There was a generous cystic duct, which was reassuring. The retractor instruments were once again organized. The catheter was removed and the cystic duct assured for its viability. It was clipped with three large clips occluding it completely. Irrigation was undertaken in the subhepatic space. There was no sign of bile leak, bleeding, or other problems. Through a separate 5 mm stab incision, a 7 mm flat Darnell drain was placed into the subhepatic space and secured the skin with a PDS suture. Irrigation was undertaken copiously, and once assured good hemostasis was present, plans made for closure. Posterior sheath and the distended peritoneum reapproximated with running #1 PDS suture. Muscular layer was irrigated. The anterior rectus sheath similarly reapproximated. Subcutaneous tissue was irrigated and hemostasis assured as well. The subcostal incision was secured with clips. Not mentioned previously was the palpation of the midline umbilical hernia and the area in the supraumbilical area, which also showed some fascial defect in it consistent with hernia, but no real opportunity for additional fascial repair or closure. The supraumbilical incision was palpated and had no fascial defect so far as could be told. The skin there was closed with clipping device as well. Acticoat dressings were applied and the drain was attached to bulb suction. After we did a course of evaluation, he was extubated and transferred to the recovery room in good condition. The operation was prolonged, complicated, and difficult. Dominantly on the basis of his severe obesity and importantly also severe advanced gangrenous cholecystitis with Electronically Signed By: KEN SINGH MD 05/01/24 0747 PATIENT NAME: QUE COTTO OPERATIVE REPORT DATE OF : 77 REPORT #: [id number] PHYSICIAN: KEN SINGH MD PCP: VIRGIL NORIEGA MD REPORT IS CONFIDENTIAL AND NOT TO BE RELEASED WITHOUT AUTHORIZATION [address] [address] Signed perforation. Of note, a single round gallstone was explanted from the maine hepatis after the gallbladder was excised and therefore there was no known retained gallstone. Blood loss was 150 mL. Sponge, needle, and instrumental counts reported as correct x3. The operation was prolonged complicated and difficult taking 4 times longer than normal related to obesity and profound inflammatory conditions encountered during operation. Ken Singh MD /MODL /[id number] cc: Virgil Noriega MD Copies: VIRGIL NORIEGA MD ~ Electronically Signed By: KEN SINGH MD 05/01/24 0747 PATIENT NAME: QUE COTTO OPERATIVE REPORT DATE OF : 77 REPORT #: [id number] PHYSICIAN: KEN SINGH MD PCP: VIRGIL NORIEGA MD REPORT IS CONFIDENTIAL AND NOT TO BE RELEASED WITHOUT AUTHORIZATION
--- NOTE | 2024-05-01 07:47 | HP ---
[facility] [address], [place] [address] Signed ADMISSION DATE: 04/28/2024 REASON FOR ADMISSION: Acute calculous cholecystitis. HISTORY OF PRESENT ILLNESS: This quite morbidly obese, BMI 49.7, white man presented to the emergency room on Thursday with upper abdominal pain. His evaluation concluded he had "heartburn" and he was discharged from the ER. He returned late last night, where he was evaluated by Dr. Mauricio with worsening symptoms, more dominantly in the right upper abdomen. Findings included tenderness in the right upper quadrant. A CT scan of the abdomen was obtained showing 2.6 right-sided adrenal nodule, but additionally acute calculous cholecystitis. A single large stone was wedged in the infundibulum of the gallbladder from report. He is admitted for further evaluation and care. PAST MEDICAL HISTORY: Notable for significant obesity as well as hypertension. CURRENT MEDICATIONS: Include amlodipine, atorvastatin, aspirin low-dose, Tylenol, and chlorthalidone. Of note, the patient has had a cerebrovascular accident in 2021 with only minimal residual effect. SOCIAL HISTORY: The patient lives with his parents currently. He is not working. REVIEW OF SYSTEMS: He denies any shortness of breath or chest pain. He denies any extremity pain. His pain is dominantly in the right upper abdomen. PHYSICAL EXAMINATION: GENERAL: A very morbidly obese white man, who does not look systemically toxic at this time. VITAL SIGNS: Presentation vital signs showed pulse of 99, blood pressure 132/92, respirations 20, and O2 saturation on room air 93%. NECK: Trachea is midline. CHEST: Clear, but with distant breath sounds. HEART: Regular without murmur. ABDOMEN: Markedly tender in the right upper abdomen. EXTREMITIES: Lower extremities are obese, but without signs of cyanosis or ulceration. Electronically Signed By: KEN SINGH MD 05/01/24 0747 PATIENT NAME: QUE COTTO HISTORY AND PHYSICAL DATE OF : 77 REPORT #: [id number] PHYSICIAN: KEN SINGH MD PCP: VIRGIL PARRISH MD REPORT IS CONFIDENTIAL AND NOT TO BE RELEASED WITHOUT AUTHORIZATION [facility] [address], [place] [address] Signed LABORATORY STUDIES: Showed a normal urinalysis. White count was 15.7, hematocrit 41.8, and platelets 273,000. Chem profile abnormal for creatinine of 1.50. Liver enzymes are normal, bilirubin 0.7, alkaline phosphatase 98. Chest x-ray showed mild elevation of the right hemidiaphragm with basilar atelectasis. The CT scan showed no evidence of pulmonary embolism, acute calculous cholecystitis in 2.6, and a right adrenal nodule, likely related to adenoma. ASSESSMENT: The patient has acute calculous cholecystitis with incidental finding of an adrenal nodule. His presentation previously in the emergency room was of the same problem, no doubt and now is more fully characterized. Discussed with him the problem and recommendation of treatment to include cholecystectomy, preferably by laparoscopic approach. Given his obesity and findings on the CT that I have reviewed, the gallbladder was quite markedly inflamed and although laparoscopic approach would be preferable, he may require open surgery. The risk of bleeding, infection, bile duct injury, need for open surgery and so forth were reviewed in detail. He understands and wished to proceed. PLAN: We will continue with fluid resuscitation, IV antibiotic administration, DVT prophylaxis. Anticipating surgery either today or tomorrow depending on his progress. MD MAY Emmanuel/MODL /[id number] cc: MD Dr. Hang Aguilar [facility] Electronically Signed By: KEN SINGH MD 05/01/24 0747 PATIENT NAME: QUE COTTO KASANDRA HISTORY AND PHYSICAL DATE OF : 77 REPORT #: [id number] PHYSICIAN: KEN SINGH MD PCP: VIRGIL PARRISH MD REPORT IS CONFIDENTIAL AND NOT TO BE RELEASED WITHOUT AUTHORIZATION [facility] [address], [place] [address] Signed Copies: VIRGIL PARRISH MD ~ Electronically Signed By: KEN SINGH MD 05/01/24 0747 PATIENT NAME: QUE COTTO HISTORY AND PHYSICAL DATE OF : 77 REPORT #: [id number] PHYSICIAN: KEN SINGH MD PCP: VIRGIL PARRISH MD REPORT IS CONFIDENTIAL AND NOT TO BE RELEASED WITHOUT AUTHORIZATION
--- NOTE | 2024-05-01 07:48 | NUR ---
PT AWAKE AND INTERACTIVE AT TIME OF SHIFT REPORT. STATES HE THINKS HE'S GOING HOME TODAY AND THAT HE FEELS READY. PT UP TO THE CHAIR FRESH H20 TO CHAIRSIDE CALL LIGHT AND NEEDED ITEMS IN REACH
[2024-05-01] MEDS ORDERED: IBUPROFEN600 MG PO (08:39)
[2024-05-01] MEDS ORDERED: OXYCODONE HCL5 MG PO (08:40)
[2024-05-01] MEDS ORDERED: ACETAMINOPHEN500 MG PO (08:40)
[2024-05-01] MEDS ORDERED: CIPROFLOXACIN750 MG PO (08:41)
[2024-05-01] MEDS ORDERED: METRONIDAZOLE500 MG PO (08:41)
--- NOTE | 2024-05-01 10:00 | NUR ---
PT EATS 100% OF MORNING MEAL DENIES DISCOMFORT OR NAUSEA. DR SINGH IN TO SEE HIM PULLS ELIER DRAIN. PT TO THE SHOWER STAFF ASSIST TO WASH AND DO SKIN CARE. EDUCATION PROVIDED AT LENGTH.
[2024-05-01 10:01] VITALS: BP 136/79
[2024-05-01 10:36] VITALS: BP 140/61
--- NOTE | 2024-05-04 09:47 | PATH ---
[facility] [address], [place] [address] Signed SPECIMEN(S): A GALLBLADDER AND STONE SPECIMEN SOURCE: A. GALLBLADDER AND STONE CLINICAL HISTORY: Acute calculus cholecystitis FINAL PATHOLOGIC DIAGNOSIS: Gallbladder, cholecystectomy: - Acute and chronic necrotizing calculous cholecystitis BRP MICROSCOPIC EXAMINATION: Histologic sections of all submitted blocks are examined by light microscopy. These findings, together with the gross examination, support the pathologic diagnosis. GROSS DESCRIPTION: The specimen, labeled and designated "Florentin Baird, gallbladder and stone x 1," is received in formalin and consists of Specimen: Fragmented gallbladder. Dimensions: 9.5 x 5.4 x 2.7 cm. Serosa: [place]-purple with diffuse adhesions. Cystic Duct: Obliterated. Calculi: Present�a single black multifaceted stone measuring 1 cm in greatest dimension. Mucosa: Brown and velvety, covered in a purulent material.. Wall thickness: 0.3 to 0.6 cm. Lymph node: No pericystic lymph nodes are grossly identified. Additional: None. Mover Helper sections are submitted in (A1). AA (under the direct supervision of a pathologist) The Gross Description was prepared using a voice recognition system. The report was reviewed for accuracy; however, sound-alike word errors, addition and/or deletions may occur. If there is any question about this report, please contact Client Services. ADDITIONAL NOTES: Immunohistochemical and/or in situ hybridization studies if performed in this case included appropriate positive controls that reacted as expected. This PATIENT NAME: KIRTIQUE [facility] PATHOLOGY DATE OF : 77 REPORT #: [id number] PHYSICIAN: KRIS SUMNER PCP: VIRGIL PARRISH MD REPORT IS CONFIDENTIAL AND NOT TO BE RELEASED WITHOUT AUTHORIZATION [address], [place] [address] Signed test was developed and its performance characteristics determined by [facility]. It has not been cleared or approved by the U.S. Food and Drug Administration. The FDA has determined that such clearance or approval is not necessary. This test is used for clinical purposes. It should not be regarded as investigational or for research. [facility] is certified under the Clinical Laboratory Improvement Amendments of 1988 (CLIA) as qualified to perform high complexity clinical laboratory testing. PERFORMING LABORATORY: Technical component was performed by [facility], [address] [place] [address] (CLIA# [id number]). Professional interpretation was performed by [facility], [address] [place] [address] (CLIA#: [id number]). Diagnostician: Hamilton Manuel MD Pathologist Electronically Signed 05/04/2024 Copies: ~ PATIENT NAME: QUE BAIRD PATHOLOGY DATE OF : [birth year] REPORT #: [id number] PHYSICIAN: [facility] PCP: VIRGIL PARRISH MD REPORT IS CONFIDENTIAL AND NOT TO BE RELEASED WITHOUT AUTHORIZATION
--- NOTE | 2024-05-05 08:02 | DS ---
[facility] [address], [place] [address] Signed ADMISSION DATE: 04/28/2024 DISCHARGE DATE: 05/01/2024 REASON FOR ADMISSION: Acute calculous cholecystitis and morbid obesity. HISTORY: This 48-year-old morbidly obese, BMI 49.73, 350 pounds, 161 kg man presented to the emergency room with severe abdominal pain. He initially was seen in the emergency room a few days prior to his current admission. He was considered to have "heartburn." He returned late in the night of April [address] Mauricio with worsening symptoms from stoma in the right upper abdomen. Tenderness was noted. A CT scan was obtained showing a 2.6 cm right-sided adrenal nodule, was additionally acute calculous cholecystitis. A single large stone was wedged in the infundibulum of the gallbladder from report. He was admitted for further evaluation and care. His other medical issues include his obesity as well as hypertension and dyslipidemia. PERTINENT PHYSICAL EXAMINATION: GENERAL: Very morbidly obese white man who does not look systemically toxic at time of my evaluation. VITAL SIGNS: Pulse of 99, blood pressure 132/92, respirations 20, oxygen saturation on room air 93%. Trachea midline. CHEST: Clear. HEART: Regular without murmur. ABDOMEN: Markedly tender in the right upper abdomen. EXTREMITIES: Show no clubbing, cyanosis, or edema. LABORATORY STUDIES: Showed a white count of 15.7, hematocrit 41.8, platelets are 273,000. Creatinine 1.50. Liver enzymes normal. CT showed no evidence of pulmonary embolism, but confirmed acute calculus cholecystitis with a right adrenal nodule, likely related to benign adenoma. HOSPITAL COURSE: He was admitted given fluid resuscitation, IV antibiotic administration, and DVT prophylaxis. Surgery was delayed, but with resuscitative measures, his lab studies improved and his overall condition improved. On April 29, 2024, he underwent operation. This initiated with laparoscopies with prompt conversion to open cholecystectomy with intraoperative cholangiogram. We found in the subhepatic space was purulence and some bile indicative of perforation of the gallbladder. Open operation did confirm a gangrenous cholecystitis with perforation of the infundibulum of the gallbladder and the Electronically Signed By: KEN SINGH MD 05/05/24 0802 PATIENT NAME: QUE COTTO DISCHARGE SUMMARY DATE OF : 77 REPORT #: [id number] PHYSICIAN: KEN SINGH MD PCP: VIRGIL PARRISH MD REPORT IS CONFIDENTIAL AND NOT TO BE RELEASED WITHOUT AUTHORIZATION [facility] [address], [place] [address] Signed stone extraluminal. The operation was quite prolonged, complicated and difficult given the significant obesity, the depth of his abdomen to reach the gallbladder but complete cholecystectomy was performed and performed safely. Cholangiogram was normal. A single 1.5 cm gallstone was removed as well. A drain was placed. The patient had progressive recovery thereafter. The drain showed no evidence of bile leak and was removed prior to discharge. By day of discharge, he was ambulating with assistance, tolerating a regular diet. The drain has been removed. His incisions are healing well. Preliminary microbiology reports Gram stain showed gram-negative rods, which are consistent with Clostridium organisms and therefore he will be discharged to home with Selwynro and Fara. He will follow up in the office in 2 to 4 weeks for wound staple removal. He is to lift no more than 10 pounds for the next month. He should walk on a daily basis and shower daily as well. DISCHARGE MEDICATIONS: 1. Ibuprofen 600 mg p.o. q.6 hours as needed for pain #60, refill zero. 2. Oxycodone 5 mg 1 to 2 p.o. q.6 hours as needed for severe pain #10, no refill. 3. Tylenol Extra Strength 500 mg two tablets p.o. q.6 hours as needed for pain #60, no refill. 4. Cipro 750 mg p.o. b.i.d. x5 days, dispense #10. 5. Flagyl 500 mg one tablet p.o. t.i.d. #15. He will continue his usual medication of atorvastatin, Lipitor 80 mg p.o. at bedtime. 6. Oxybutynin 15 mg at bedtime for bladder control issues. 7. Allopurinol 100 mg p.o. daily for his gout. 8. Omeprazole 20 mg p.o. daily for reflux. 9. Vitamin D3 325 mcg p.o. daily. 10. Carvedilol or Coreg 6.25 mg p.o. b.i.d. with meals. 11. Aspirin 81 mg p.o. daily. 12. Amlodipine 5 mg p.o. daily. 13. He will hold on his indomethacin 25 mg capsule for pain given his ulcer risk is increased at this time. DISCHARGE DIAGNOSES: 1. Severe acute gangrenous cholecystitis with perforated gallbladder and purulence of the gallbladder lumen and extrusion of stone, status post laparoscopic evaluation, conversion to open cholecystectomy with intraoperative cholangiogram; prolonged, complicated, and difficult. 2. Morbid obesity. Electronically Signed By: KEN SINGH MD 05/05/24 0802 PATIENT NAME: QUE COTTO DISCHARGE SUMMARY DATE OF : [birth year] REPORT #: [id number] PHYSICIAN: KEN SINGH MD PCP: VIRGIL PARRISH MD REPORT IS CONFIDENTIAL AND NOT TO BE RELEASED WITHOUT AUTHORIZATION [address] [place] [address] Signed 3. Hypertension. 4. Dyslipidemia. 5. Gout. MD MAY Emmanuel/BRITTANIE /[id number] cc: Dr. Hang Parrish [facility] Copies: ~ Electronically Signed By: KEN SINGH MD 05/05/24 0802 PATIENT NAME: QUE COTTO DISCHARGE SUMMARY DATE OF : 77 REPORT #: [id number] PHYSICIAN: KEN SINGH MD PCP: VIRGIL PARRISH MD REPORT IS CONFIDENTIAL AND NOT TO BE RELEASED WITHOUT AUTHORIZATION
== END 2024-05-01 10:40 | disposition home or self-care (01) ==
LOC: ED 23:16 → MS 23:18 → ED 04-28 06:30 → MS 04-28 06:30 → ED 04-28 07:58 → MS 05-01 10:40
PROVIDERS: Family Medicine; ADMIT Surgery; ATTEND Surgery
DX: K80.12 Calculus of gallbladder with acute and chronic cholecystitis without obstruction (principal); K82.A1 Gangrene of gallbladder in cholecystitis; K43.6 Other and unspecified ventral hernia with obstruction, without gangrene; I10 Essential (primary) hypertension; E78.5 Hyperlipidemia, unspecified; M10.9 Gout, unspecified; E66.01 Morbid (severe) obesity due to excess calories; Z68.42 Body mass index [BMI] 45.0-49.9, adult; F17.210 Nicotine dependence, cigarettes, uncomplicated; Z79.899 Other long term (current) drug therapy
CPT/HCPCS: 00790; 36415; 71045; 71260; 74177; 74300; 80053; 81001; 83605; 83735; 83880; 84484; 85025; 85060; 85379; 85610; 85730; 87040; 87070; 87075; 87076; 87205; 87502; 88304; 93005; 93010; 94762; 96375; 96376; 99285-25; 99406; A9270; G0378; J0131; J0330; J0690; J0696; J1100; J1171; J1644; J1885; J2250; J2270; J2405; J2704; J2765; J3010; J3490; J7040; J7121; Q9967; U0002